=== PATIENT | male | born 1970 ===

== ENCOUNTER 2016-04-27 07:15 | Emergency (ER) | payer OTHER ==
[2016-04-27 07:30] VITALS: BP 119/87
[2016-04-27] MEDS ORDERED: BSS OPTH.SOL* BTL ONE (07:34)
[2016-04-27] MEDS ORDERED: Fluorescein Sodium TOPICAL* 1 MG TEST ONE (07:34)
[2016-04-27] MEDS ORDERED: Tetracaine 0.5% OPTH.SOL 15ML* BTL ONE (07:35)
--- NOTE | 2016-04-27 08:17 | UC ---
Ryan Leroy Claudia, scribed for Mar Palumbo DO on 04/27/16 at 0745 . Eye Complaint HPI - HPI Summary HPI Summary: 45 year old male presents to the [facility] with right eye irritation. PT notes mild pain but significant eye irritation. Pt notes sudden onset when he woke up Th am. Pt denies blurry vision, diplopia, fever, no pain when moving the eye, chills, photophobia, N/V/D, abd pain, SOB, CP, sore throat, ear ache. Pt denies any previous trauma to the eye including hammering, grinding or sanding recently. He notes that he was having some foreign body sensations to that eye but no longer feels like anything is in his eye. Pt notes that 2 of his co-workers have conjunctivitis and are being treated for it. - History of Current Complaint Chief Complaint: UCEye Stated Complaint: EYE COMPLAINT Time Seen by Provider: 04/27/16 07:31 Hx Obtained From: Patient Onset/Duration: Sudden Onset, Lasting Days - since am, Still Present Timing: Constant Severity Initially: Mild Severity Currently: Mild Location of Injury: Conjunctiva Character: Foreign Body Sensation - initally, but is now irritated Aggravating Factor(s): Nothing Alleviating Factor(s): Nothing Associated Signs And Symptoms: Positive: Drainage (Clear). Negative: Photophobia, Vision Impairment Bilateral, Vision Impairment Left, Fever, Swelling - Risk Factors Penetrating Injury Risk Factor: Negative - NO HAMMERING, GRINDING - Allergies/Home Medications Allergies/Adverse Reactions: Allergies Allergy/AdvReac Type Severity Reaction Status Date / Time No Known Allergies Allergy Verified 04/27/16 07:22 PMH/Surg Hx/FS Hx/Imm Hx Previously Healthy: Yes Endocrine History Of: Denies: Diabetes, Thyroid Disease Cardiovascular History Of: Reports: Hypertension Denies: Cardiac Disorders Respiratory History Of: Denies: COPD, Asthma GI/ History Of: Denies: Ulcer - Surgical History Surgical History: None - Family History Known Family History: Positive: Cardiac Disease, Hypertension - Social History Occupation: Employed Full-time Alcohol Use: Occasionally Alcohol Amount: once per month Substance Use Type: Marijuana Substance Use Comment - Amount & Last Used: daily Smoking Status (MU): Heavy Every Day Tobacco Smoker Type: Cigarettes Amount Used/How Often: 1/2 ppd Length of Time of Smoking/Using Tobacco: 20 years Have You Smoked in the Last Year: Yes Cessation Counseling: Patient Advised to Stop - Immunization History Most Recent Tetanus Shot: UNKNOWN Review of Systems Constitutional: Negative - NO FEVER CHILLS Skin: Negative Eyes: Eye Redness - right ENT: Negative - NO SORE THROAT Respiratory: Negative - NO COUGH SOB Cardiovascular: Negative - NO CP Gastrointestinal: Negative - NO N/V/D ABD PAIN Genitourinary: Negative Motor: Negative Neurovascular: Negative Musculoskeletal: Negative Neurological: Negative Psychological: Negative All Other Systems Reviewed And Are Negative: Yes Physical Exam Triage Information Reviewed: Yes Appearance: Well-Appearing, No Pain Distress, Well-Nourished Vital Signs: Initial Vital Signs Temp 98.7 F 04/27/16 07:23 Pulse 101 04/27/16 07:23 Resp 16 04/27/16 07:23 BP 119/87 04/27/16 07:23 Pulse Ox 99 04/27/16 07:23 Vital Signs Reviewed: Yes Eye Exam: Other - Conjunctivia inflammed with clear drainage. No foreign body seen no cornea abrasion ENT Exam: Normal ENT: Positive: Hearing grossly normal, Pharynx normal, TMs normal. Negative: Nasal congestion, Nasal drainage, Tonsillar swelling, Tonsillar exudate, Trismus , Muffled/hoarse voice Neck exam: Normal Neck: Positive: Supple Respiratory Exam: Normal Respiratory: Positive: Lungs clear, Normal breath sounds, No respiratory distress, No accessory muscle use Cardiovascular: Positive: RRR, No Murmur Abdomen Description: Positive: Nontender, Soft. Negative: CVA Tenderness (R), CVA Tenderness (L), Distended, Guarding Musculoskeletal Exam: Normal Neurological: Positive: Alert, Muscle Tone Normal Psychological Exam: Normal Psychological: Positive: Age Appropriate Behavior Skin Exam: Normal, Other - WARM, DRY NML COLOR Eye Complaint Course/Dx - Differential Dx/Diagnosis Differential Diagnosis/HQI/PQRI: Conjunctivitis, Corneal Abrasion, Foreign Body Provider Diagnoses: conjunctivitis Discharge - Discharge Plan Condition: Stable Disposition: HOME Prescriptions: Polymyx/Trimethoprim OPTH* [Polytrim OPHTH*] 1 drop LEFT EYE Q3H #1 btl Patient Education Materials: Conjunctivitis (ED) Referrals: Ko Crenshaw MD [Primary Care Provider] - 7 Days (Please follow-up ) Additional Instructions: USE EYE DROPS DIRECTED. If you develop a fever or pain when moving the eye please seek further medical attention at the Emergency Room. Please take the prescribed drops for 7 days and follow-up with your primary care provider. The documentation as recorded by the Ryan mcarthur Claudia accurately reflects the service I personally performed and the decisions made by me, Mar Palumbo DO.
== END 2016-04-27 08:07 | disposition home or self-care (01) ==
LOC: UCEAST 07:15
DX: H10.9 Unspecified conjunctivitis (principal); I10 Essential (primary) hypertension; F17.210 Nicotine dependence, cigarettes, uncomplicated
CPT/HCPCS: 99212; A9270-GY; G0463

== ENCOUNTER 2016-05-03 12:32 | Emergency (ER) | payer OTHER ==
[2016-05-03 13:11] VITALS: BP 139/83
--- NOTE | 2016-05-03 13:21 | UC ---
Eye Complaint HPI - HPI Summary HPI Summary: seen here 6 days ago, dx with conjunctivitis and started on poly-trim, right eye remains red but vision is more clear now in left eye . other at work have the same sx and are being treated with eye drops with steroids. - History of Current Complaint Chief Complaint: UCEye Stated Complaint: EYE ISSUE Time Seen by Provider: 05/03/16 13:02 Hx Obtained From: Patient Onset/Duration: Sudden Onset, Lasting Days - 7, Still Present Timing: Constant Severity Initially: Moderate Severity Currently: Moderate Pain Intensity: 0 Pain Scale Used: 0-10 Numeric Location of Injury: Conjunctiva Aggravating Factor(s): Nothing Alleviating Factor(s): Nothing Associated Signs And Symptoms: Positive: Drainage (Purulent). Negative: Photophobia, Vision Impairment Bilateral, Vision Impairment Right, Vision Impairment Left, Fever, Swelling - Allergies/Home Medications Allergies/Adverse Reactions: Allergies Allergy/AdvReac Type Severity Reaction Status Date / Time No Known Allergies Allergy Verified 05/03/16 13:11 PMH/Surg Hx/FS Hx/Imm Hx Previously Healthy: No Endocrine History Of: Denies: Diabetes, Thyroid Disease Cardiovascular History Of: Reports: Hypertension Denies: Cardiac Disorders Respiratory History Of: Denies: COPD, Asthma GI/ History Of: Denies: Ulcer - Surgical History Surgical History: None - Family History Known Family History: Positive: Cardiac Disease, Hypertension - Social History Occupation: Employed Full-time Lives: With Family Alcohol Use: Occasionally Alcohol Amount: once per month Substance Use Type: Marijuana Substance Use Comment - Amount & Last Used: daily Smoking Status (MU): Heavy Every Day Tobacco Smoker Type: Cigarettes Amount Used/How Often: 1/2 ppd Length of Time of Smoking/Using Tobacco: 20 years Have You Smoked in the Last Year: Yes Cessation Counseling: Patient Advised to Stop - Immunization History Most Recent Tetanus Shot: UNKNOWN Review of Systems Constitutional: Negative Skin: Negative Eyes: Drainage - b/l, Eye Redness - b/l ENT: Negative Respiratory: Negative Cardiovascular: Negative Gastrointestinal: Negative Genitourinary: Negative Motor: Negative Neurovascular: Negative Musculoskeletal: Negative Neurological: Negative Psychological: Negative All Other Systems Reviewed And Are Negative: Yes Physical Exam Triage Information Reviewed: Yes Appearance: Well-Appearing, No Pain Distress, Well-Nourished Vital Signs: Initial Vital Signs Temp 99.1 F 05/03/16 13:06 Pulse 90 03/04/17 13:06 Resp 20 05/03/16 13:06 BP 139/83 05/03/16 13:06 Pulse Ox 98 05/03/16 13:06 Eyes: Positive: Conjunctiva Inflamed - b/l, Discharge - b/l, Other: - perrla, eomi, fundascopic exam wnl ENT Exam: Normal ENT: Positive: Normal ENT inspection, Hearing grossly normal. Negative: Nasal congestion, Nasal drainage, Trismus, Muffled/hoarse voice Dental Exam: Normal Neck exam: Normal Neck: Positive: Supple, Nontender Respiratory Exam: Normal Respiratory: Positive: Chest non-tender, No respiratory distress, No accessory muscle use Cardiovascular Exam: Normal Cardiovascular: Positive: RRR, Brisk Capillary Refill Musculoskeletal Exam: Normal Musculoskeletal: Positive: Strength Intact, ROM Intact, No Edema Neurological Exam: Normal Neurological: Positive: Alert, Muscle Tone Normal Psychological Exam: Normal Skin Exam: Normal Skin: Positive: rashes Eye Complaint Course/Dx - Course Course Of Treatment: cipro eye drops, follow with opthamology on Thursday - Differential Dx/Diagnosis Differential Diagnosis/HQI/PQRI: Conjunctivitis, Keratitis, Periorbital Cellulitis, Orbital Cellulitis, Uveitis Provider Diagnoses: b/l conjuctivitis Discharge - Discharge Plan Condition: Stable Disposition: HOME Prescriptions: Ciprofloxacin 0.3% OPTH.DAVID* [Cipro 0.3% Opth*] 1 drop BOTH EYES Q2H #1 btl Patient Education Materials: How to Use Eye Drops (ED), Conjunctivitis (ED) Referrals: Ko Crenshaw MD [Primary Care Provider] - Natan Swenson MD [Medical Doctor] - 2 Days
== END 2016-05-03 13:33 | disposition home or self-care (01) ==
LOC: UCEAST 12:32
DX: H10.33 Unspecified acute conjunctivitis, bilateral (principal); F17.210 Nicotine dependence, cigarettes, uncomplicated
CPT/HCPCS: 99212; G0463